=== PATIENT | female | born 1995 | race Two or more races ===

== ENCOUNTER 2018-04-06 11:05 | Outpatient (CLI) | payer OTHER ==
[~2018-04-06 11:05] MED LIST: CEFDINIR300 MG PO; PROCARDIA90 MG/BLIS PO
== END 2018-04-06 11:14 | disposition home or self-care (01) ==
LOC: SONOGRAMA 11:05
DX: N84.0 Polyp of corpus uteri (principal)

== ENCOUNTER 2021-06-20 09:01 | Outpatient (CLI) | payer OTHER | END 2021-06-20 09:57 | disposition home or self-care (01) | LOC: PRENATAL 09:01 | PROVIDERS: ATTEND Obstetrics & Gynecology Maternal & Fetal Medicine | DX: Z36.89 Encounter for other specified antenatal screening (principal); O36.80X1 Pregnancy with inconclusive fetal viability, fetus 1; Z3A.12 12 weeks gestation of pregnancy ==

== ENCOUNTER 2021-08-15 08:05 | Outpatient (CLI) | payer OTHER | END 2021-08-15 09:20 | disposition home or self-care (01) | LOC: PRENATAL 08:05 | PROVIDERS: ATTEND Obstetrics & Gynecology Maternal & Fetal Medicine | DX: O35.3XX0 Maternal care for (suspected) damage to fetus from viral disease in mother, not applicable or unspecified (principal); O35.0XX0 Maternal care for (suspected) central nervous system malformation in fetus, not applicable or unspecified; Z3A.20 20 weeks gestation of pregnancy ==

== ENCOUNTER 2021-11-08 09:35 | Outpatient (CLI) | payer OTHER | END 2021-11-08 11:00 | disposition home or self-care (01) | LOC: PRENATAL 09:35 | PROVIDERS: ATTEND Obstetrics & Gynecology Maternal & Fetal Medicine | DX: O35.0XX0 Maternal care for (suspected) central nervous system malformation in fetus, not applicable or unspecified (principal); O35.3XX0 Maternal care for (suspected) damage to fetus from viral disease in mother, not applicable or unspecified; Z3A.32 32 weeks gestation of pregnancy ==

== ENCOUNTER 2021-12-04 09:48 | Outpatient (CLI) | payer OTHER ==
[~2021-12-04] VITALS: Ht 154.9 cm; Wt 58.5 kg
[2021-12-04] MEDS ORDERED: PRENATAL CAPLE1 EAC1 (09:50)
== END 2021-12-04 21:01 | disposition home or self-care (01) ==
LOC: OBS/DEL 09:48
PROVIDERS: ATTEND Obstetrics & Gynecology
DX: O47.03 False labor before 37 completed weeks of gestation, third trimester (principal); Z3A.35 35 weeks gestation of pregnancy

== ENCOUNTER 2021-12-16 09:18 | Outpatient (CLI) | payer OTHER ==
[~2021-12-16] VITALS: Ht 154.9 cm; Wt 59.0 kg
[~2021-12-16 09:18] MED LIST changes: +PRENATAL CAPLE1 EAC1
== END 2021-12-16 19:28 | disposition home or self-care (01) ==
LOC: OBS/DEL 09:18
PROVIDERS: ATTEND Student in an Organized Health Care Education/Training Program
DX: O47.1 False labor at or after 37 completed weeks of gestation (principal); Z3A.37 37 weeks gestation of pregnancy

== ENCOUNTER 2021-12-26 07:42 | Inpatient (IN) | payer OTHER ==
[~2021-12-26] VITALS: Ht 157.5 cm; Wt 58.1 kg
[2021-12-28] MEDS ORDERED: NAPR500T14 PO (08:48)
== END 2021-12-28 13:34 | disposition home or self-care (01) | DRG 807 ==
LOC: LDR 07:42 → OB/GYN 17:04
PROVIDERS: ADMIT Obstetrics & Gynecology; ATTEND Obstetrics & Gynecology
PROC: 10E0XZZ Delivery of Products of Conception, External Approach (ICD-10-PCS; principal; 2021-12-26)
PROC: 0KQM0ZZ Repair Perineum Muscle, Open Approach (ICD-10-PCS; 2021-12-26)
PROC: 4A1HXCZ Monitoring of Products of Conception, Cardiac Rate, External Approach (ICD-10-PCS; 2021-12-26)
DX: O70.1 Second degree perineal laceration during delivery (principal); Z37.0 Single live birth; Z3A.39 39 weeks gestation of pregnancy; Z20.822 Contact with and (suspected) exposure to COVID-19